=== PATIENT | female | born 1990 | race Caucasian/White ===

== ENCOUNTER 2023-03-19 18:11 | Emergency (ER) | payer OTHER, SELFPAY ==
[2023-03-19 19:01] VITALS: BP 120/87; PULSE 94; RESP 16; TEMP 36.9; O2SAT 97; BMI 35.0
--- NOTE | 2023-03-19 19:05 | XR_ITS ---
The [address] [address] Patient Name: CHEVY DING MRN: [id number] date: 1990 Sex: F Assigned Patient Location: ER Current Patient Location: ER Accession/Order Number: [id number] Exam Date: 03/19/2023 19:20 Report Date: 03/19/2023 20:16 At the request of: MARY ANN MANEDL Procedure: XR foot LT min 3V PROCEDURE: XR foot LT min 3V HISTORY: c/o lump to left foot ; lump over first and second metatarsals COMPARISON: None. FINDINGS: BONES:No fracture, acute abnormality, or significant arthropathy. SOFT TISSUES:No visible soft tissue swelling. EFFUSION:None visible. OTHER: Negative. XR/XR foot LT min 3V IMPRESSION: 1. No bone abnormality. 2. No appreciable soft tissue abnormality. Electronically authenticated by: BLAIR ALONZO Date: 03/19/2023 20:16
[2023-03-19 21:01] VITALS: BP 117/91; PULSE 75; RESP 18; TEMP 36.5; O2SAT 98
--- NOTE | 2023-03-19 21:13 | ED_ITS ---
Documented by User: HARLEY Tate 03/19/23 21:25 HPI - Extremity Injury (Lower) General Chief Complaint: Extremity Injury, Lower Stated Complaint: FOOT PAIN Time Seen by Provider: 03/19/23 20:55 Source: patient Limitations: no limitations History of Present Illness HPI Narrative: patient is a 32-year-old female presents to the Emergency Room with concerns of pain and swelling to her left midfoot. Patient denies injury, states pain is worsened after standing for long periods of time at work. Patient states she gets discomfort when she wears shoes that are too tight on laces pressing on the top of her foot. She denies any numbness or tingling into her foot. She has tried orthotics remotely but presents to the Emergency Room tonight as she is off the weekend and can't take off work during the week. Patient denies any recent illness or fever. Patient presents wearing white slip ons. Related Data Previous Rx's Medication Instructions Recorded prednisone 20 mg tablet 20 mg PO DAILY 10 days #10 tabs 03/19/23 Allergies Allergy/AdvReac Type Severity Reaction Status Date / Time No Known Drug Allergies Allergy Verified 03/19/23 19:00 Review of Systems ROS Constitutional Denies: fever or chills Cardiovascular Denies: chest pain Respiratory Denies: shortness of breath Genitourinary Denies: other (denies chance of ) Musculoskeletal Denies: other (denies arthralgias) Integumentary/Breast Denies: rash or itching PFSH PFSH Social History Smoking status: Heavy tobacco smoker Exam Narrative Exam Narrative: Nurses notes and vital signs reviewed and patient is not hypoxic. General: The patient appears well and in no apparent distress. Patient is resting comfortably on cart. Skin: Warm, dry, no pallor noted.no evidence of rash or skin injury Head: Normocephalic, atraumatic Neck: Supple, trachea mid-line, no tenderness, no lymphadenopathy Ears, Nose, Mouth, and Throat: external exam unremarkable Cardiovascular: Regular Rate and Rhythm Respiratory: Patient is in no distress, no accessory muscle use. Chest Wall: no tenderness Back: non-tender, no CVA tenderness Musculoskeletal: normal ROM, no tenderness, no swelling, left foot point tenderness to the mid foot just proximal to the 1st tarsal bone. No erythema or warmth, no allodynia. Full range of motion of the ankle foot and toes noted. Tenderness mostly noted on the dorsal aspect, no pain to the plantar aspect. Patient has good arch preservation with examination well standing, able to single lead to rise without difficulty. She is not focally tender to Lisfranc's region. Exam concerning for midfoot arthritis Neurological: A&O x4, denies paresthesias Psychiatric: Cooperative Constitutional Vital Signs, click to edit/add: Last Vital Signs Temp 97.7 F 03/19/23 21:01 Pulse 75 03/19/23 21:01 Resp 18 03/19/23 21:01 BP 117/91 H 03/19/23 21:01 Pulse Ox 98 03/19/23 21:01 Course Vital Signs Vital signs: Vital Signs Temperature 98.5 F 03/19/23 19:01 Pulse Rate 94 H 03/19/23 19:01 Respiratory Rate 16 03/19/23 19:01 Blood Pressure 120/87 H 03/19/23 19:01 Pulse Oximetry 97 03/19/23 19:01 Temperature 97.7 F 03/19/23 21:01 Pulse Rate 75 03/19/23 21:01 Respiratory Rate 18 03/19/23 21:01 Blood Pressure 117/91 H 03/19/23 21:01 Pulse Oximetry 98 03/19/23 21:01 MDM - Extremity Injury (Lower) MDM Narrative Medical decision making narrative: discussed x-ray performed, no acute bony abnormality and no obvious fracture or soft tissue swelling. Clinical exam and history concerning for midfoot arthritis, this was slightly noted on personal inspection of the x-ray. She denies injury, recommend a course of Tylenol and prednisone with risks and b enefits discussed. She is recommended to use power step insoles to offload the arch and support the dorsal aspect of her foot. We discussed application and her shoe and work shoe. If not improved she is given number for local podiatry for potential further evaluation. Patient thankful had no further concerns or questions. The patient is to followup with Dr. Baldwin in 1 wk or to return to the emergency department should any of the signs or symptoms worsen or new symptoms develop. Patient had questions answered. The patient agrees with the following Diagnosis and Treatment plan and the patient will be discharged home. Lab Data Labs: Procedure: XR foot LT min 3V PROCEDURE: XR foot LT min 3V HISTORY: c/o lump to left foot ; lump over first and second metatarsals COMPARISON: None. FINDINGS: BONES:No fracture, acute abnormality, or significant arthropathy. SOFT TISSUES:No visible soft tissue swelling. EFFUSION:None visible. OTHER: Negative. IMPRESSION: 1. No bone abnormality. 2. No appreciable soft tissue abnormality. Electronically authenticated by: BLAIR ALONZO Date: 03/19/2023 20:16 Discharge Plan Discharge Chief Complaint: Extremity Injury, Lower Clinical Impression: Foot pain, left Patient Disposition: Home, Self-Care Time of Disposition Decision: 21:14 Condition: Good Prescriptions / Home Meds: New prednisone 20 mg tablet 20 mg PO DAILY 10 Days Qty: 10 0RF Rx Instructions: 2tabs daily with food for 5 days then 1 tab daily for 5 days Instructions: Arthralgia (ED), Swollen Joint (ED) Stand Alone Forms: Portal Instructions Referrals: Physician,Non-Staff, [Primary Care Provider] - 1 week Kapil Baldwin MD [Physician] - 1 week Discharge Date/Time: 03/19/23 21:23 Documented by User: Coral Martinez MD 03/20/23 09:15 HPI - Extremity Injury (Lower) General Chief Complaint: Extremity Injury, Lower Stated Complaint: FOOT PAIN Time Seen by Provider: 03/19/23 20:55 Related Data Previous Rx's Medication Instructions Recorded prednisone 20 mg tablet 20 mg PO DAILY 10 days #10 tabs 03/19/23 Allergies Allergy/AdvReac Type Severity Reaction Status Date / Time No Known Drug Allergies Allergy Verified 03/19/23 19:00 PFSH PFSH Social History Smoking status: Heavy tobacco smoker Exam Constitutional Vital Signs, click to edit/add: Last Vital Signs Temp 97.7 F 03/19/23 21:01 Pulse 75 03/19/23 21:01 Resp 18 03/19/23 21:01 BP 117/91 H 03/19/23 21:01 Pulse Ox 98 03/19/23 21:01 Course Vital Signs Vital signs: Vital Signs Temperature 98.5 F 03/19/23 19:01 Pulse Rate 94 H 03/19/23 19:01 Respiratory Rate 16 03/19/23 19:01 Blood Pressure 120/87 H 03/19/23 19:01 Pulse Oximetry 97 03/19/23 19:01 Temperature 97.7 F 03/19/23 21:01 Pulse Rate 75 03/19/23 21:01 Respiratory Rate 18 03/19/23 21:01 Blood Pressure 117/91 H 03/19/23 21:01 Pulse Oximetry 98 03/19/23 21:01 MDM - Extremity Injury (Lower) MDM Narrative Medical decision making narrative: discussed x-ray performed, no acute bony abnormality and no obvious fracture or soft tissue swelling. Clinical exam and history concerning for midfoot arthritis, this was slightly noted on personal inspection of the x-ray. She denies injury, recommend a course of Tylenol and prednisone with risks and benefits discussed. She is recommended to use power step insoles to offload the arch and support the dorsal aspect of her foot. We discussed application and her shoe and work shoe. If not improved she is given number for local podiatry for potential further evaluation. Patient thankful had no further concerns or questions. The patient is to followup with Dr. Baldwin in 1 wk or to return to the emergency department should any of the signs or symptoms worsen or new symptoms develop. Patient had questions answered. The patient agrees with the following Diagnosis and Treatment plan and the patient will be discharged home. Attending physician attestation I have reviewed the mid-level documentation, agree with the documentation, medical decision making and treatment plan as outlined by the mid-level provider. Discharge Plan Discharge Chief Complaint: Extremity Injury, Lower Clinical Impression: Foot pain, left Patient Disposition: Home, Self-Care Time of Disposition Decision: 21:14 Condition: Good Prescriptions / Home Meds: New prednisone 20 mg tablet 20 mg PO DAILY 10 Days Qty: 10 0RF Rx Instructions: 2tabs daily with food for 5 days then 1 tab daily for 5 days Instructions: Arthralgia (ED), Swollen Joint (ED) Stand Alone Forms: Portal Instructions Referrals: Physician,Non-Staff, MD [Primary Care Provider] - 1 week Kapil Baldwin MD [Physician] - 1 week Discharge Date/Time: 03/19/23 21:23
--- NOTE | 2023-03-19 21:16 | PC.NURSE ---
pt presents to ED c/o pain to top of left foot. pt states she has a bump on top of foot. denies injury
== END 2023-03-19 21:23 | disposition home or self-care (01) ==
PROVIDERS: Emergency Provider Emergency Medicine
DX: M79.672 Pain in left foot (principal); F17.210 Nicotine dependence, cigarettes, uncomplicated
CPT/HCPCS: 73630; 99283

== ENCOUNTER 2023-09-24 08:10 | Emergency (ER) | payer OTHER, SELFPAY ==
[2023-09-24] VITALS (57 sets, daily range): BP systolic 100–163; BP diastolic 50–93; PULSE 68–100; RESP 16–18; TEMP 36.1–36.6; O2SAT 97–100; BMI 39.7
[2023-09-24 08:51] LABS: Bilirubin Urine NEGATIVE (NEGATIVE); Blood Urine LARGE (NEGATIVE); Clarity Urine CLEAR (CLEAR); Color Urine DK. ORANGE (YELLOW); Glucose Urine UA 100 mg/dL (NEGATIVE); Ketones Urine NEGATIVE (NEGATIVE); Leukocyte Esterase Urine NEGATIVE (NEGATIVE); Nitrite Urine NEGATIVE (NEGATIVE); Protein Urine 30 mg/dL (NEG/TRACE); Specific Gravity Urine >=1.030 (1.005-1.025); Urobilinogen Urine 0.2 EU/dL (0.2-1.0); pH Urine 5.5 (5.0-9.0)
[2023-09-24 08:56] LABS: HCG Qualitative Urine* NEGATIVE (NEGATIVE)
[2023-09-24 09:04] LABS: Bacteria Urine SMALL #/HPF (NONE SEEN); Mucus Urine LARGE (NONE SEEN); RBC Urine 20-50 #/HPF (0-2); Squamous Epithelial Cell Urine FEW #/LPF (NONE/RARE)
[2023-09-24 09:06] LABS: Urine Culture Indicated YES; Urine Microscopic Indicated YES
--- NOTE | 2023-09-24 09:13 | CT_ITS ---
The [address] [address] Patient Name: CHEVY DING MRN: [id number] date: 1990 Sex: F Assigned Patient Location: ER Current Patient Location: ER Accession/Order Number: [id number] Exam Date: 09/24/2023 09:38 Report Date: 09/24/2023 10:08 At the request of: TRINA EDGE Procedure: CT abdomen pelvis w con EXAM: CT abdomen pelvis w con HISTORY: right back abd pain COMPARISON: None TECHNIQUE: CT abdomen and CT pelvis studies were performed with the use of intravenous contrast. Multiple axial images were obtained. Reformatted coronal and sagittal images were obtained and reviewed. FINDINGS: Abdomen: Visualized lower lung valera appear grossly unremarkable. Views of the liver demonstrate mild decreased attenuation in the anterior aspect of the medial segment of the left lobe likely related to vascular differential. No obvious hepatic or splenic mass. Minimal fatty infiltration of the liver suggested. Gallbladder is mildly distended which is of doubtful acute significance. No evidence of gallbladder wall thickening or pericholecystic fluid. Pancreas and adrenal glands appear grossly unremarkable. Stomach appears grossly unremarkable. Bowel loops appear grossly unremarkable. Visualized vascular structures appear grossly intact. No evidence of adenopathy in the retroperitoneum. No obvious renal mass or obstructive uropathy. Small 2 mm nonobstructing calculus suggested in the inferior left kidney. Pelvis: Bladder appears grossly unremarkable. Uterus appears grossly unremarkable. Likely follicles in the left ovary. Ill-definition of the right ovary with what appears to be adjacent free fluid, of uncertain etiology and significance. Follow-up ultrasound study of the pelvis with transabdominal and transvaginal imaging may be considered for further evaluation. Perirectal fat planes appear grossly intact. Bowel loops appear grossly unremarkable. Visualized vascular structures appear grossly intact. No evidence of adenopathy. The appendix is visualized and appears unremarkable. Moderate degenerative changes visualized lower dorsal spine with mild degenerative changes in the lumbar spine. Slight convexity of the lumbar spine to the right. Small area of sclerosis in the medial left iliac bone likely representing a bone island. CT/CT abdomen pelvis w con IMPRESSION: CT abdomen and CT pelvis studies demonstrate likely follicles left ovary. Ill-definition of the right ovary with adjacent free fluid, of uncertain etiology and significance. Follow-up ultrasound study of the pelvis with transabdominal and transvaginal imaging may be considered for further evaluation. Tiny nonobstructive left renal calculus. Minimal fatty infiltration of the liver. Electronically authenticated by: DES BENAVIDES Date: 09/24/2023 10:08
[2023-09-24] MEDS: ONDANSETRON PF 4 MG/2 ML VIAL IV ×2 (09:28→16:24)
[2023-09-24] MEDS: KETOROLAC TROMETHAMINE 30 MG/ML VIAL 15 MG IVP (09:28)
[2023-09-24] MEDS: 0.9 % SODIUM CHLORIDE 1,000 ML 1000 ML IV (09:29)
--- NOTE | 2023-09-24 09:35 | ED.GENADUL1 ---
HPI - General Adult General Chief complaint: Abdominal Pain Stated complaint: ABDOMEN/BACK PAIN Time Seen by Provider: 09/24/23 08:45 Source: patient Mode of arrival: walk-in Limitations: no limitations History of Present Illness HPI narrative: Patient is a 33-year-old female who is having pain radiating from right lower back into her right inguinal area and also radiating down the right lateral aspect of her right leg. Patient said that she has similar pain back in June. Patient was seen at [facility] at that time, she is told that she was having cramping from her menses and was discharged. Patient is not happy with that Emergency Room visit. Patient is not had return of the pain until today. Patient finished her menses last week. Patient's had no urinary frequency or urgency or burning. Patient has no history of sciatica. She has no nausea or vomiting. She did have nausea earlier today with no vomiting, she is currently not nauseous. Patient did drive to the Emergency Room today. Patient has no PCP. Patient has done no recent heavy lifting, twisting or turning to cause any type of pain. Patient has no other acute complaints. . All systems are negative except as noted/marked. All systems reviewed and otherwise negative. . Nurses note and vital signs reviewed and patient is not hypoxic. General: The patient appears well and in no apparent distress. Patient is resting comfortably on cart. Patient is not toxic, lethargic, or listless Skin: Warm, dry, no pallor noted. There is no rash noted. No petechiae, purpura. Head: Normocephalic, atraumatic Eye: Normal conjunctiva, no drainage, EOMI. PERRL Ears, Nose, Mouth, and Throat: oral mucosa is moist. Nares patent. Mouth without vesicles. Cardiovascular: Regular Rate and Rhythm, no murmur, gallop, rub Respiratory: Patient is in no distress, no accessory muscle use, lungs are clear to auscultation, no wheezing, rales or rhonchi Back: No reproducible tenderness to palpation to midline lower lumbar sacral area along with paralumbar, parasacral area. non-tender, no CVA tenderness bilaterally to percussion. No CT LS midline pain GI: soft, Obese, no pulsatile mass, no right upper quadrant or right lower quadrant tenderness to palpation, no flank pain bilateral, otherwise tenderness to palpation, no masses appreciated. No rebound, guarding, or rigidity noted. No flank pain bilateral, No distention Musculoskeletal: Patient has full range of motion of all of the extremities, no motor, sensory, or focal neurological deficits. Patient had no right hip pain with internal/external rotation of the right hip. Patient has no tenderness to palpation to the right piriformis muscle. Negative straight leg raising test on the right and left as well. Neurological: A&O x3, normal speech Psychiatric: Cooperative Related Data Previous Rx's Medication Instructions Recorded prednisone 20 mg tablet 20 mg PO DAILY 10 days #10 tabs 03/19/23 ondansetron 4 mg disintegrating 4 mg PO Q4H PRN nausea and 09/24/23 tablet vomiting 3 days #6 tabs Allergies Allergy/AdvReac Type Severity Reaction Status Date / Time No Known Drug Allergies Allergy Verified 03/19/23 19:00 PFSH PFSH Social History Smoking status: Former smoker Exam Constitutional Vital Signs, click to edit/add: Last Vital Signs Temp 97.8 F 09/24/23 16:50 Pulse 79 09/24/23 16:50 Resp 16 09/24/23 16:50 BP 121/66 09/24/23 16:50 Pulse Ox 98 09/24/23 16:50 O2 Del Method Room Air 09/24/23 16:50 Course Vital Signs Vital signs: Vital Signs Temperature 97.7 F 09/24/23 08:12 Pulse Rate 100 H 09/24/23 08:12 Respiratory Rate 18 09/24/23 08:12 Blood Pressure 143/87 H 09/24/23 08:12 Pulse Oximetry 97 09/24/23 08:12 Oxygen Delivery Method Room Air 09/24/23 08:12 Temperature 97.8 F 09/24/23 16:50 Pulse Rate 79 09/24/23 16:50 Respiratory Rate 16 09/24/23 16:50 Blood Pressure 121/66 09/24/23 16:50 Pulse Oximetry 98 09/24/23 16:50 Oxygen Delivery Method Room Air 09/24/23 16:50 Medical Decision Making MDM Narrative Medical decision making narrative: 0900 Patient initially had urine sample that showed blood with no significant signs of infection. Patient last had menses last week. Patient will now have a kidney stone workup secondary to pain last June, return her pain today, and I cannot elicit any significant pain during exam. 1645 Lengthy amount of time has been spent at bedside multiple times by myself explaining multiple different possible etiologies for this patient. Reassessing this patient. Speaking to Dr. Rider for follow-up for [employer] for dysfunctional uterine bleeding that has required 2 units of blood today. Also discussed the possibilities of ruptured ovarian cyst versus kidney stone versus lumbar radiculopathy versus sciatica. A copy of the CT report was given to the patient at discharge. Patient was having return of nausea at discharge, she was given a additional dose of Zofran which helped somewhat. Patient will be sent home with a prescription for Zofran. Patient increase fluids at home. Current studies were ordered on this patient as well to help with outpatient follow-up. Patient had a ultrasound done at the request of Dr. Rider which will help patient for further assessment and coming up with a treatment plan and the office this week. Patient finished her menses last week, no other recommendations from Dr. Rider medication at this time. Patient has been in the Emergency Room for approximately 9 hours. With receiving 2 units of blood, lab work, CAT scan, ultrasound and a very thorough workup. At discharge, patient has no other questions at this time, patient will follow-up with Dr. Rider next week which patient was told several times that Dr. Rider will help Schedule patient next week for reevaluation and discuss treatment plan in summary. Patient feels slightly better after receiving 2 units of blood along with IV fluids. Patient was sent home with Zofran prophylactically. Critical care time 35 minutes exclusive from separate billable procedures that were performed. The following was considered in the determination of critical care but not limited to the level of medical decision making, intensive cardiac and/or respiratory monitoring, frequent vital sign monitoring, evaluation of laboratory studies, evaluation of radiographic studies, oxygen monitoring, and constant monitoring and speaking to family at bedside Lab Data Lab results reviewed: Yes I reviewed the patient's lab results Labs: Lab Results 09/24/23 09/24/23 09/24/23 Range/Units 08:43 09:10 09:20 WBC 6.6 (4.0-11.0) 10^3/uL RBC 2.98 L (4.20-5.40) 10^6/uL Hgb 6.6 L* (12.0-16.0) g/dL Hct 22.1 L* (36.0-48.0) % MCV 74.2 L (81.0-99.0) fL MCH 22.1 L (26.7-34.0) pg MCHC 29.9 (29.9-35.2) g/dL RDW 17.3 H (11.0-15.0) % Plt Count 292 (150-450) 10^3/uL MPV 11.5 (9.5-13.5) fL Neut % (Auto) 73.0 (43.0-75.0) % Lymph % (Auto) 18.2 L (20.5-60.0) % Rawlins % (Auto) 6.1 (1.7-12.0) % Eos % (Auto) 1.2 (0.9-7.0) % Baso % (Auto) 1.2 (0.2-2.0) % Neut # (Auto) 4.8 (1.4-6.5) 10^3/uL Lymph # (Auto) 1.2 (1.2-3.8) 10^3/uL Rawlins # (Auto) 0.4 (0.3-0.8) 10^3/uL Eos # (Auto) 0.1 (0.0-0.7) 10^3/uL Baso # (Auto) 0.1 (0.0-0.1) 10^3/uL Abs Immat Gran (auto) 0.02 (0.00-0.03) 10^3/uL Imm/Tot Granulo (auto) 0.3 (0.0-0.5) % Sodium 136 (136-145) mmol/L Potassium 4.0 (3.5-5.1) mmol/L Chloride 101 (98-107) mmol/L Carbon Dioxide 23.7 (21.0-32.0) mmol/L Anion Gap 15.3 BUN 10.0 (7.0-18.0) mg/dL Creatinine 0.94 (0.55-1.02) mg/dL Est GFR ( Amer) >60 (>=60) Est GFR (Non-Af Amer) >60 (>=60) BUN/Creatinine Ratio 10.6 Glucose 137 H (74-106) mg/dL Lactate 2.9 H* (0.4-2.0) mmol/L Calcium 8.6 (8.5-10.1) mg/dL Iron 9.0 L (50.0-170.0) ug/dL TIBC 410.0 (250.0-450.0) ug/dL % Saturation 2.2 % Ferritin 4.0 L (8.0-252.0) ng/mL Total Bilirubin 0.2 (0.2-1.0) mg/dL AST 14 L (15-37) U/L ALT 26 (14-59) U/L Alkaline Phosphatase 68 (46-116) U/L Total Protein 6.9 (6.4-8.2) g/dL Albumin 3.2 L (3.4-5.0) g/dL Globulin 3.7 g/dL Albumin/Globulin Ratio 0.9 Urine Color Dk. orange Cancelled (YELLOW) Urine Clarity Clear Cancelled (CLEAR) Urine pH 5.5 Cancelled (5.0-9.0) Ur Specific Bethel >=1.030 A Cancelled (1.005-1.025) Urine Protein 30 A Cancelled (NEG/TRACE) mg/dL Urine Glucose (UA) 100 A Cancelled (NEGATIVE) mg/dL Urine Ketones Negative Cancelled (NEGATIVE) mg/dL Urine Occult Blood Large A Cancelled (NEGATIVE) Urine Nitrite Negative Cancelled (NEGATIVE) Urine Bilirubin Negative Cancelled (NEGATIVE) Urine Urobilinogen 0.2 Cancelled (0.2-1.0) EU/dL Ur Leukocyte Esterase Negative Cancelled (NEGATIVE) Urine RBC 20-50 A Cancelled (0-2) #/HPF Urine WBC 5-10 A Cancelled (NONE SEEN) #/HPF Ur Squamous Epith Cells Few A Cancelled (NONE/RARE) #/LPF Ur Transition Epith Cell Cancelled Ur Renal Epithelial Cell Cancelled Urine Crystals Cancelled Calcium Carbonate Cryst Cancelled Calcium Phosphate Cryst Cancelled Calcium Oxalate Crystal Cancelled Cystine Crystals Cancelled Uric Acid Crystals Cancelled Triple Phos Crystals Cancelled Tyrosine Crystals Cancelled Amorphous Sediment Cancelled Urine Bacteria Small A Cancelled (NONE SEEN) #/HPF Urine Casts Cancelled Fatty Casts Cancelled Hyaline Casts Cancelled Fine Granular Casts Cancelled Coarse Granular Casts Cancelled Waxy Casts Cancelled RBC Casts Cancelled Urine Starch Cancelled Urine Mucus Large A Cancelled (NONE SEEN) Urine Trichomonas Cancelled Urine Yeast Cancelled Urine Sperm Cancelled Ur Oval Fat Bodies Cancelled Ur Culture Indicated? Yes Cancelled Urine HCG, Qual Negative (NEGATIVE) Blood Type Antibody Screen Crossmatch 09/24/23 09/24/23 Range/Units 10:28 12:25 WBC (4.0-11.0) 10^3/uL RBC (4.20-5.40) 10^6/uL Hgb (12.0-16.0) g/dL Hct (36.0-48.0) % MCV (81.0-99.0) fL MCH (26.7-34.0) pg MCHC (29.9-35.2) g/dL RDW (11.0-15.0) % Plt Count (150-450) 10^3/uL MPV (9.5-13.5) fL Neut % (Auto) (43.0-75.0) % Lymph % (Auto) (20.5-60.0) % Rawlins % (Auto) (1.7-12.0) % Eos % (Auto) (0.9-7.0) % Baso % (Auto) (0.2-2.0) % Neut # (Auto) (1.4-6.5) 10^3/uL Lymph # (Auto) (1.2-3.8) 10^3/uL Rawlins # (Auto) (0.3-0.8) 10^3/uL Eos # (Auto) (0.0-0.7) 10^3/uL Baso # (Auto) (0.0-0.1) 10^3/uL Abs Immat Gran (auto) (0.00-0.03) 10^3/uL Imm/Tot Granulo (auto) (0.0-0.5) % Sodium (136-145) mmol/L Potassium (3.5-5.1) mmol/L Chloride (98-107) mmol/L Carbon Dioxide (21.0-32.0) mmol/L Anion Gap BUN (7.0-18.0) mg/dL Creatinine (0.55-1.02) mg/dL Est GFR ( Amer) (>=60) Est GFR (Non-Af Amer) (>=60) BUN/Creatinine Ratio Glucose (74-106) mg/dL Lactate 0.7 (0.4-2.0) mmol/L Calcium (8.5-10.1) mg/dL Iron (50.0-170.0) ug/dL TIBC (250.0-450.0) ug/dL % Saturation % Ferritin (8.0-252.0) ng/mL Total Bilirubin (0.2-1.0) mg/dL AST (15-37) U/L ALT (14-59) U/L Alkaline Phosphatase (46-116) U/L Total Protein (6.4-8.2) g/dL Albumin (3.4-5.0) g/dL Globulin g/dL Albumin/Globulin Ratio Urine Color (YELLOW) Urine Clarity (CLEAR) Urine pH (5.0-9.0) Ur Specific Bethel (1.005-1.025) Urine Protein (NEG/TRACE) mg/dL Urine Glucose (UA) (NEGATIVE) mg/dL Urine Ketones (NEGATIVE) mg/dL Urine Occult Blood (NEGATIVE) Urine Nitrite (NEGATIVE) Urine Bilirubin (NEGATIVE) Urine Urobilinogen (0.2-1.0) EU/dL Ur Leukocyte Esterase (NEGATIVE) Urine RBC (0-2) #/HPF Urine WBC (NONE SEEN) #/HPF Ur Squamous Epith Cells (NONE/RARE) #/LPF Ur Transition Epith Cell Ur Renal Epithelial Cell Urine Crystals Calcium Carbonate Cryst Calcium Phosphate Cryst Calcium Oxalate Crystal Cystine Crystals Uric Acid Crystals Triple Phos Crystals Tyrosine Crystals Amorphous Sediment Urine Bacteria (NONE SEEN) #/HPF Urine Casts Fatty Casts Hyaline Casts Fine Granular Casts Coarse Granular Casts Waxy Casts RBC Casts Urine Starch Urine Mucus (NONE SEEN) Urine Trichomonas Urine Yeast Urine Sperm Ur Oval Fat Bodies Ur Culture Indicated? Urine HCG, Qual (NEGATIVE) Blood Type O Negative Antibody Screen Negative Crossmatch See Detail Imaging Data CT scan - abdomen: Radiologist's impression: ITS Impressions Abdomen/Pelvis CT 09/24/23 09:13 IMPRESSION: CT abdomen and CT pelvis studies demonstrate likely follicles left ovary. Ill-definition of the right ovary with adjacent free fluid, of uncertain etiology and significance. Follow-up ultrasound study of the pelvis with transabdominal and transvaginal imaging may be considered for further evaluation. Tiny nonobstructive left renal calculus. Minimal fatty infiltration of the liver. Electronically authenticated by: DES NILSFARZAD Date: 09/24/2023 10:08 Transvaginal US 09/24/23 12:00 IMPRESSION: Ultrasound pelvis study demonstrates a small amount is fluid within endometrial canal which is nonspecific. A few small foci of echodensity in the distal uterine canal region which may represent blood given the patient's history. Few small nabothian cysts suggested in the cervical canal. A few follicles in the right ovary, no obvious ovarian mass on either side. No evidence of ovarian torsion suggested. Right ovary is better defined compared to the CT exam. Small amount of free intraperitoneal fluid in the posterior cul-de-sac similar to the CT exam. Electronically authenticated by: DES NILSFARZAD Date: 09/24/2023 14:13 Discharge Plan Discharge Chief Complaint: Abdominal Pain Clinical Impression: Anemia requiring transfusions, Acute lumbar radiculopathy, DUB (dysfunctional uterine bleeding), Nausea & vomiting, Abdominal pain Patient Disposition: Home, Self-Care Time of Disposition Decision: 16:47 Condition: Fair Mode of Transportation: Private Vehicle Prescriptions / Home Meds: New ondansetron 4 mg tablet,disintegrating 4 mg PO Q4H PRN (Reason: nausea and vomiting) 3 Days Qty: 6 0RF No Action prednisone 20 mg tablet 20 mg PO DAILY 10 Days Qty: 10 0RF Rx Instructions: 2tabs daily with food for 5 days then 1 tab daily for 5 days Instructions: Abnormal (Dysfunctional) Uterine Bleeding (ED), Kidney Stones (ED), Acute Nausea and Vomiting (ED), Lumbar Radiculopathy (ED), Abdominal Pain (ED), Anemia (ED), Ruptured Ovarian Cyst (ED) Additional Instructions: Call Dr. Rider office on Wednesday to make a follow-up appointment about dysfunctional uterine bleeding Start taking vitamins daily. Increase fluids at home, Gatorade, Powerade, or water. Education was done at bedside on dysfunctional uterine bleeding, kidney stones, possible ruptured ovarian cyst, sciatica, and lumbar radiculopathy. Education on all these things have been given to you as possible Differential diagnosis for your Emergency Room visit today. Stand Alone Forms: Portal Instructions Referrals: Damaso Rider DO [Physician] - 1 week Physician,Non-Staff, MD [Primary Care Provider] - 1 week Discharge Date/Time: 09/24/23 16:52
[2023-09-24 09:36] LABS: Basophils Absolute Auto 0.1 10^3/uL (0.0-0.1); Basophils Percent Auto 1.2 % (0.2-2.0); Eosinophils Absolute Auto 0.1 10^3/uL (0.0-0.7); Eosinophils Percent Auto 1.2 % (0.9-7.0); Immature Granulocytes Abs Auto 0.02 10^3/uL (0.00-0.03); Immature Granulocytes Pct Auto 0.3 % (0.0-0.5); Lymphocytes Absolute Auto 1.2 10^3/uL (1.2-3.8); Lymphocytes Percent Auto 18.2 % (20.5-60.0); Mean Corpuscular HGB Conc 29.9 g/dL (29.9-35.2); Mean Corpuscular Hemoglobin 22.1 pg (26.7-34.0); Mean Corpuscular Volume 74.2 fL (81.0-99.0); Mean Platelet Volume 11.5 fL (9.5-13.5); Monocytes Absolute Auto 0.4 10^3/uL (0.3-0.8); Monocytes Percent Auto 6.1 % (1.7-12.0); Neutrophils Absolute Auto 4.8 10^3/uL (1.4-6.5); Platelet Count 292 10^3/uL (150-450); Red Blood Count 2.98 10^6/uL (4.20-5.40); Red Cell Distribution Width 17.3 % (11.0-15.0); White Blood Count 6.6 10^3/uL (4.0-11.0)
[2023-09-24 09:41] LABS: Hematocrit 22.1 % (36.0-48.0); Hemoglobin 6.6 g/dL (12.0-16.0)
[2023-09-24 09:43] LABS: Alanine Aminotransferase 26 U/L (14-59); Albumin Globulin Ratio 0.9; Albumin Level 3.2 g/dL (3.4-5.0); Alkaline Phosphatase 68 U/L (46-116); Anion Gap 15.3; Aspartate Amino Transferase 14 U/L (15-37); BUN Creatinine Ratio 10.6; Bilirubin Total 0.2 mg/dL (0.2-1.0); Calcium 8.6 mg/dL (8.5-10.1); Carbon Dioxide 23.7 mmol/L (21.0-32.0); Chloride 101 mmol/L (98-107); Estimated GFR (African America >60 (>=60); Estimated GFR (Non-African Ame >60 (>=60); Globulin 3.7 g/dL; Glucose 137 mg/dL (74-106); Sodium 136 mmol/L (136-145); Total Protein 6.9 g/dL (6.4-8.2)
[2023-09-24 10:02] LABS: Lactate/Lactic Acid 2.9 mmol/L (0.4-2.0)
[2023-09-24 11:31] LABS: Percent Iron Saturation 2.2 %
--- NOTE | 2023-09-24 12:00 | US_ITS ---
[address] [address] Patient Name: CHEVY DING MRN: [id number] date: 1990 Sex: F Assigned Patient Location: ER Current Patient Location: ER Accession/Order Number: [id number] Exam Date: 09/24/2023 12:50 Report Date: 09/24/2023 14:13 At the request of: TRINA EDGE Procedure: US pelvis w/ transvaginal EXAM: US pelvis w/ transvaginal HISTORY: Hemoglobin 6.6, chronic dysmenorrhagia, Per Adry COMPARISON: CT abdomen and CT pelvis studies performed earlier today on 09/24/2023 TECHNIQUE: Ultrasound study of the pelvis was performed with transabdominal and transvaginal imaging. FINDINGS: Uterus measures 10.7 x 5.4 x 5.3 cm in longitudinal, AP and transverse dimensions. Central endometrial echo complex measures approximately 1.1 cm which is grossly within normal limits for a small amount of nonspecific fluid within the endometrial canal. A few small echodensities in the distal uterine region of the cervix which could represent a few small foci of blood. A few small nabothian cysts in the cervical canal measuring up to 0.3 cm. Right ovary measures 3.8 x 3.4 x 3.0 cm, left ovary measures 3.4 x 2.6 x 2.3 cm. A few small follicles in the right ovary. There is vascularity seen in both ovaries. No obvious ovarian torsion. No obvious ovarian mass. The right ovary appears be better defined than what was suggested on the CT exam. Mild degree of free intraperitoneal fluid in the posterior cul-de-sac similar to the CT exam. US/US pelvis w/ transvaginal IMPRESSION: Ultrasound pelvis study demonstrates a small amount is fluid within endometrial canal which is nonspecific. A few small foci of echodensity in the distal uterine canal region which may represent blood given the patient's history. Few small nabothian cysts suggested in the cervical canal. A few follicles in the right ovary, no obvious ovarian mass on either side. No evidence of ovarian torsion suggested. Right ovary is better defined compared to the CT exam. Small amount of free intraperitoneal fluid in the posterior cul-de-sac similar to the CT exam. Electronically authenticated by: DES BENAVIDES Date: 09/24/2023 14:13
[2023-09-24] MEDS: 0.9 % SODIUM CHLORIDE 1,000 ML 100 ML IV (12:30)
[2023-09-24 12:46] LABS: Lactate/Lactic Acid 0.7 mmol/L (0.4-2.0)
[2023-09-24] MEDS: FUROSEMIDE 40 MG/4 ML VIAL 20 MG IV (14:56)
== END 2023-09-24 16:52 | disposition home or self-care (01) ==
PROVIDERS: Emergency Provider Emergency Medicine
DX: R10.9 Unspecified abdominal pain (principal); R11.2 Nausea with vomiting, unspecified; N93.8 Other specified abnormal uterine and vaginal bleeding; M54.16 Radiculopathy, lumbar region; D64.9 Anemia, unspecified; E66.9 Obesity, unspecified; Z68.39 Body mass index [BMI] 39.0-39.9, adult; Z87.891 Personal history of nicotine dependence
CPT/HCPCS: 36415; 36430; 74177; 76830; 76856; 80053; 81001; 82728; 83540; 83550; 83605; 84703; 85025; 86850; 86900; 86901; 87086; 96374; 96375; 96376; 99285; J1885; J1940; J2405; P9016; P9038; Q9967

== ENCOUNTER 2024-01-10 08:46 | Emergency (ER) | payer OTHER, SELFPAY ==
[2024-01-10 08:48] VITALS: BP 140/89; PULSE 88; TEMP 37.1; O2SAT 98; BMI 38.0
--- NOTE | 2024-01-10 09:01 | ED.DENTAL1 ---
HPI - Dental/Oral General Chief complaint: Dental/Oral Stated complaint: MOUTH PAIN Time Seen by Provider: 01/10/24 08:53 Source: patient Mode of arrival: walk-in History of Present Illness HPI Narrative: 33-year-old female presents to the emergency department for tooth ache. She is complaining pain to the right upper dentition posteriorly. She is worried about an infection. She does not have a dentist. The pain is moderate and continuous and throbbing and she has had it for a few days. Related Data Previous Rx's ?Medication ?Instructions ?Recorded ibuprofen 800 mg tablet 800 mg PO Q8H PRN pain #20 tabs 01/10/24 penicillin V potassium 250 mg 250 mg PO QID 10 days #40 tabs 01/10/24 tablet Allergies Allergy/AdvReac Type Severity Reaction Status Date / Time No Known Drug Allergies Allergy Verified 03/19/23 19:00 Review of Systems ROS Narrative A ten point review of systems is negative except as noted above. PFSH PFSH Social History Smoking status: Former smoker Exam Narrative Exam Narrative: Nurses note and vital signs reviewed and patient is not hypoxic. General: The patient appears well and in no apparent distress. Patient is resting comfortably on cart. Skin: Warm, dry, no pallor noted. There is no rash noted. Head: Normocephalic, atraumatic Eye: Normal conjunctiva, no drainage Ears, Nose, Mouth, and Throat: oral mucosa is moist. Nares patent. No facial swelling or erythema. No swelling to the floor of her mouth. Right upper dentition is examined. No gingival swelling. No bleeding or pus present. Cardiovascular: Regular Rate and Rhythm Respiratory: Patient is in no distress, no accessory muscle use Back: non-tender GI: Soft and nontender Musculoskeletal: No joint swelling Neurological: Awake and alert Psychiatric: Cooperative Constitutional Vital Signs, click to edit/add: Last Vital Signs Temp 98.8 F 01/10/24 08:48 Pulse 88 01/10/24 08:48 Resp 20 01/10/24 08:48 BP 140/89 01/10/24 08:48 Pulse Ox 98 01/10/24 08:48 Course Vital Signs Vital signs: Vital Signs Temperature 98.8 F 01/10/24 08:48 Pulse Rate 88 01/10/24 08:48 Respiratory Rate 20 01/10/24 08:48 Blood Pressure 140/89 01/10/24 08:48 Pulse Oximetry 98 01/10/24 08:48 Temperature 98.8 F 01/10/24 08:48 Pulse Rate 88 01/10/24 08:48 Respiratory Rate 20 01/10/24 08:48 Blood Pressure 140/89 01/10/24 08:48 Pulse Oximetry 98 01/10/24 08:48 MDM - Dental/Oral MDM Narrative Medical decision making narrative: She is provided prescriptions for penicillin and ibuprofen and was given a dental referral list. Treatment diagnosis and follow-up were discussed with the patient. Discharge Plan Discharge Stand Alone Forms: Portal Instructions Chief Complaint: Dental/Oral Clinical Impression: Toothache Patient Disposition: Home, Self-Care Time of Disposition Decision: 09:00 Condition: Good Mode of Transportation: Private Vehicle Prescriptions / Home Meds: New ibuprofen 800 mg tablet 800 mg PO Q8H PRN (Reason: pain) Qty: 20 0RF penicillin V potassium 250 mg tablet 250 mg PO QID 10 Days Qty: 40 0RF Print Language: Setswana Instructions: Toothache (ED) Additional Instructions: See attached dental list Referrals: Physician,Non-Staff, MD [Primary Care Provider] - 1 week
== END 2024-01-10 09:13 | disposition home or self-care (01) ==
PROVIDERS: Emergency Provider Emergency Medicine
DX: K08.89 Other specified disorders of teeth and supporting structures (principal); Z87.891 Personal history of nicotine dependence
CPT/HCPCS: 99283